=== PATIENT | male | born 1975 | race American Indian/Alaskan Native ===

== ENCOUNTER 2016-12-31 10:37 | Emergency (ER) | payer SELFPAY ==
[2016-12-31 11:20] LABS: Basophils % (Auto) 0.1 % (0.0-1.8); Eosinophils % (Auto) 0.6 % (0.0-4.3); Hematocrit 42.2 % (35.5-45.6); Hemoglobin 13.8 gm/dl (11.8-15.2); Mean Corpuscular HGB Conc 33 % (32-34); Mean Corpuscular Hemoglobin 27 pg (28-32); Mean Corpuscular Volume 82 fl (84-94); Platelet Count 316 K/mm3 (140-440); Red Blood Count 5.15 M/mm3 (3.65-5.03); Red Cell Distribution Width 15.9 % (13.2-15.2); White Blood Count 9.7 K/mm3 (4.5-11.0)
[2016-12-31 11:25] LABS: Anion Gap 19 mmol/L; BUN/Creatinine Ratio 12.22; Blood Urea Nitrogen 11 mg/dL (9-20); Calcium 9.1 mg/dL (8.4-10.2); Carbon Dioxide 26 mmol/L (22-30); Chloride 102.2 mmol/L (98-107); Potassium 4.8 mmol/L (3.6-5.0); Sodium 142 mmol/L (137-145)
[2016-12-31 11:40] LABS: Glucose 113 mg/dL (75-100)
--- NOTE | 2016-12-31 20:33 | Emergency Department Report ---
HPI - General Chief Complaint: Chest Pain Time Seen by Provider: 12/31/16 12:02 - HPI HPI: This is a 41-year-old Afro-[place] male presents emergency Department with complaint of pain to the left shoulder and arm is been going on intermittently for the past week. Earlier today there was a short amount of time in which he had some upper left chest pain as well but that has since resolved. He is left- hand dominant. He took some aspirin for his symptoms without any relief. He denies any fever, shortness of breath, nausea, vomiting, diaphoresis. He does not have a primary care doctor. No past medical history. He denies tobacco abuse. No recent travel or sick contacts at home. He denies any swelling or skin color change to the affected arm and shoulder. ED Past Medical Hx - Past Medical History Previous Medical History?: No - Surgical History Past Surgical History?: No - Social History Smoking Status: Never Smoker Substance Use Type: None - Medications Home Medications: Home Medications Medication Instructions Recorded Confirmed Last Taken Type No Known Home Medications [No 12/31/16 12/31/16 Unknown History Reported Home Medications] ED Review of Systems ROS: Stated complaint: CHEST PAIN Other details as noted in HPI Comment: All other systems reviewed and negative Constitutional: denies: chills, fever Eyes: denies: eye pain, eye discharge, vision change ENT: denies: ear pain, throat pain Respiratory: denies: cough, shortness of breath, wheezing Cardiovascular: chest pain. denies: palpitations Gastrointestinal: denies: abdominal pain, nausea, diarrhea Genitourinary: denies: urgency, dysuria Musculoskeletal: arthralgia. denies: joint swelling Skin: denies: rash, lesions Neurological: denies: headache, weakness, paresthesias Physical Exam - Physical Exam Vital Signs: Vital Signs 12/31/16 10:54 Temperature 98.1 F Pulse Rate 63 Respiratory 16 Rate Blood Pressure 143/80 O2 Sat by Pulse 100 Oximetry Physical Exam: GENERAL: The patient is well-developed well-nourished. HEENT: Normocephalic. Atraumatic. Extraocular motions are intact. Patient has moist mucous membranes. Pupils equal reactive to light bilaterally. NECK: Supple. Trachea is midline. CHEST/LUNGS: Clear to auscultation. There is no respiratory distress noted. HEART/CARDIOVASCULAR: Regular. There is no tachycardia. There is no gallop rub or murmur. ABDOMEN: Abdomen is soft, nontender. Patient has normal bowel sounds. There is no abdominal distention. SKIN: Skin is warm and dry. NEURO: The patient is awake, alert, and oriented. The patient is cooperative. The patient has no focal neurologic deficits. The patient has normal speech. MUSCULOSKELETAL: There is some mild reproduced with tenderness to palpation to the left lateral humerus but no obvious deformity. There is no limitation range of motion. There is no evidence of acute injury. Radial pulse +2 over 4 bilaterally. Muscle strength 5 out of 5 upper and lower extremities bilaterally. ED Course Vital Signs 12/31/16 10:54 Temperature 98.1 F Pulse Rate 63 Respiratory 16 Rate Blood Pressure 143/80 O2 Sat by Pulse 100 Oximetry ED Medical Decision Making - Lab Data Result diagrams: 12/31/16 11:00 12/31/16 11:00 - EKG Data -: EKG Interpreted by Me EKG shows normal: sinus rhythm, axis, intervals, QRS complexes, ST-T waves Rate: normal - EKG Data When compared to previous EKG there are: previous EKG unavailable Interpretation: normal EKG - Radiology Data Radiology results: image reviewed interpreted by me: Chest x-ray did not show any acute process. Heart is normal shape and size. No effusions. No pneumothorax. No signs of pneumonia seen. X-ray of the left shoulder does not show any fracture, dislocation or any acute process. - Medical Decision Making 41-year-old male presents with one-week history of some pains to the upper shoulder and neck and down to the left arm. There was some transient chest discomfort earlier today that resolved without any intervention. The patient has no risk factors for coronary artery disease. EKG is normal without ST elevation AK, ischemia or dysrhythmia. Negative troponins 3. He is low on the well's criteria and negative on the pulmonary embolism rule out criteria. X -rays of the chest and shoulder did not show any acute process. Patient appears safe for discharge home at this time. He'll be given a referral for primary care and cardiology. He has been encouraged to return to the ER with any worsening of his symptoms or any acute distress. He has a ASHER score of 0. He is low on the heart score criteria. - Differential Diagnosis musculoskeletal pain, AK, rotator cuff injury, arthritis Critical Care Time: No Critical care attestation.: If time is entered above; I have spent that time in minutes in the direct care of this critically ill patient, excluding procedure time. ED Disposition Clinical Impression: Left arm pain Disposition: - TO HOME OR SELFCARE Is pt being admited?: No Condition: Stable Instructions: Chest Pain (ED), Arthralgia (ED) Additional Instructions: These follow-up with a primary care doctor in the next few days. I've given him a referral for a local hall monitor, Dr. Gabriel, in case she would like to follow up for an outpatient stress test. Return to the emergency department with any chest pain, shortness of breath or any acute distress. Referrals: PRIMARY CARE, [Primary Care Provider] - 3-5 Days JEANNE LOUIS MD [Staff Physician] - 3-5 Days ARLENE GABRIEL MD [Staff Physician] - 3-5 Days Time of Disposition: 21:56
[2016-12-31] MEDS ORDERED: TORADOL IM ONE (21:23)
[2016-12-31 22:11] VITALS: BP 131/78
--- NOTE | 2017-01-01 07:27 | XRay Report ---
LEFT SHOULDER: Routine views demonstrate normal bony and soft tissue structures with normal joint alignment of the shoulder. IMPRESSION: Normal study.
--- NOTE | 2017-01-01 07:27 | XRay Report ---
ROUTINE CHEST, TWO VIEWS: HISTORY: chest pain. The trachea, heart, mediastinal contour, lung ortega and bony thorax are unremarkable. IMPRESSION: Unremarkable chest x-ray.
== END 2016-12-31 22:11 | disposition home or self-care (01) ==
LOC: ED 10:37
DX: M25.512 Pain in left shoulder (principal); M79.602 Pain in left arm
CPT/HCPCS: 36415; 71020; 73030; 80048; 84484; 85025; 93005; 93010; 96372; 99284; J1885